=== PATIENT | male | born 1955 | race Caucasian/White ===

== ENCOUNTER 2018-08-18 23:53 | Emergency (ER) | payer OTHER ==
[~2018-08-18] VITALS: Ht 167.6 cm; Wt 81.8 kg
[2018-08-19] MEDS ORDERED: KETOROLAC TROMETHAMINE 60 MG/2 ML VIAL IM ONE (00:15)
[2018-08-19 02:00] VITALS: BP 130/69
== END 2018-08-19 02:11 | disposition home or self-care (01) ==
LOC: EMS 23:53
DX: S63.502A Unspecified sprain of left wrist, initial encounter (principal); S60.811A Abrasion of right wrist, initial encounter; W01.0XXA Fall on same level from slipping, tripping and stumbling without subsequent striking against object, initial encounter; Y93.89 Activity, other specified; Y92.89 Other specified places as the place of occurrence of the external cause; Y99.8 Other external cause status
CPT/HCPCS: 29125; 73110; 96372; 99284; J1885

== ENCOUNTER 2021-02-06 17:19 | Emergency (ER) | payer MEDICARE, OTHER ==
[~2021-02-06] VITALS: Ht 165.1 cm; Wt 72.7 kg
[2021-02-06] MEDS ORDERED: BACITRACIN 0.9 GM PACKET OINTMENT TP ONE (18:00)
[2021-02-06 18:23] VITALS: BP 133/77
== END 2021-02-06 18:29 | disposition home or self-care (01) ==
LOC: EMS 17:26
DX: S91.112A Laceration without foreign body of left great toe without damage to nail, initial encounter (principal); W10.9XXA Fall (on) (from) unspecified stairs and steps, initial encounter; Y93.01 Activity, walking, marching and hiking; Y92.89 Other specified places as the place of occurrence of the external cause; Y99.8 Other external cause status
CPT/HCPCS: 99283